=== PATIENT | female | born 1960 | race Asian ===

== ENCOUNTER 2017-11-04 12:43 | Day surgery (SDC) | payer BC ==
[2017-11-04] MEDS ORDERED: LIDOCAINE 2% (SDV) 5 ML INJ (14:59)
[2017-11-04] MEDS ORDERED: MIDAZOLAM 1 MG/ML 2 ML INJ (14:59)
[2017-11-04] MEDS ORDERED: PROPOFOL 20 ML ×2 (14:59→15:22)
== END 2017-11-04 15:32 | disposition home or self-care (01) ==
LOC: GIL 12:43
DX: K44.9 Diaphragmatic hernia without obstruction or gangrene (principal); E11.9 Type 2 diabetes mellitus without complications; I10 Essential (primary) hypertension
CPT/HCPCS: 43235; 82962